=== PATIENT | female | born 1995 | race African-American/Black ===

== ENCOUNTER 2018-05-26 19:03 | Emergency (ER) | payer MEDICAID ==
--- NOTE | 2018-05-26 21:21 | ER Document Report ---
HPI - HPI Patient complains to provider of: Cough Time Seen by Provider: 05/26/18 20:38 Pain Level: 5 Context: Patient is a 22-year-old female presents to the emergency department complaining of generalized cough and congestion for the last 4 weeks. Patient denies any fevers. States when she gets into a coughing fit she feels as though she cannot breathe. Patient has no history of asthma or albuterol use in the past. Patient does admit to 2 episodes of posttussive vomiting today. Past medical history: None Medications: None Allergies: Red dye, Motrin - CONSTITUTIONAL Constitutional: REPORTS: Fever. DENIES: Chills - EENT EENT: REPORTS: Sore Throat, Ear Pain - both ears - NEURO Neurology: REPORTS: Headache, Weakness, Vision blurred, Dizzinesss / Vertigo - CARDIOVASCULAR Cardiovascular: REPORTS: Chest pain - wheezing - RESPIRATORY Respiratory: REPORTS: Trouble Breathing, Coughing - REPRODUCTIVE Reproductive: DENIES: : Past Medical History - General Information source: Patient - Social History Smoking Status: Former Smoker Chew tobacco use (# tins/day): No Frequency of alcohol use: None Drug Abuse: Marijuana Family History: Arthritis, CAD, CVA, DM, Hyperlipidemia, Hypertension, Malignancy. denies: Thyroid Disfunction Patient has suicidal ideation: No Patient has homicidal ideation: No Pulmonary Medical History: Reports: Hx Asthma Renal/ Medical History: Denies: Hx Peritoneal Dialysis Psychiatric Medical History: Reports: Hx Depression Past Surgical History: Reports: Hx Section - x 3 - Immunizations Immunizations up to date: Yes Hx Diphtheria, Pertussis, Tetanus Vaccination: Yes Vertical Provider Document - CONSTITUTIONAL Agree With Documented VS: Yes Notes: GENERAL: Alert, interacts well. No acute distress. HEAD: Normocephalic, atraumatic. No frontal or maxillary sinus tenderness noted EYES: Pupils equal, round, and reactive to light. Extraocular movements intact. ENT: Oral mucosa moist, tongue midline. Nares patent, swollen turbinates bilaterally, TM's intact, nonerythematous, nonbulging. Pharynx within normal limits, nonerythematous, no palatal petechiae or exudate noted NECK: Full range of motion. Supple. Trachea midline. LUNGS: Clear to auscultation bilaterally, no wheezes, rales, or rhonchi. No respiratory distress. HEART: Regular rate and rhythm. No murmur ABDOMEN: Soft, non-tender. Non-distended. Bowel sounds present in all 4 quadrants. EXTREMITIES: Moves all 4 extremities spontaneously. No edema, normal radial and dorsalis pedis pulses bilaterally. No cyanosis. BACK: no cervical, thoracic, lumbar midline tenderness. No saddle anesthesia, normal distal neurovascular exam. NEUROLOGICAL: Alert and oriented x3. Normal speech. cranial nerves II through XII grossly intact PSYCH: Normal affect, normal mood. SKIN: Warm, dry, normal turgor. No rashes or lesions noted. - INFECTION CONTROL TRAVEL OUTSIDE OF THE [place] IN LAST 30 DAYS: No Course - Re-evaluation Re-evalutation: 05/26/18 21:54 Patient's chest x-ray shows no signs of pneumonia, pneumothorax, rib fracture. Patient is in the emergency room with her to children with similar symptoms. Discussed symptomatic relief of symptoms at home. Patient stable for discharge. - Vital Signs Vital signs: Temp Pulse Resp BP Pulse Ox 98.7 F 113 H 20 104/64 98 05/26/18 19:23 05/26/18 19:23 05/26/18 19:23 05/26/18 19:23 05/26/18 19:23 Discharge - Discharge Clinical Impression: Upper respiratory infection Qualifiers: URI type: unspecified viral URI Qualified Code(s): J06.9 - Acute upper respiratory infection, unspecified Condition: Stable Disposition: HOME, SELF-CARE Instructions: Upper Respiratory Illness ([facility]) Additional Instructions: As we discussed you have been seen and treated in the emergency department for an upper respiratory infection. Unfortunately these are caused by viruses so they do not respond to antibiotics. Your chest x-ray revealed no signs of pne umonia. You should continue taking [id number] cold medications and prescription medications as prescribed. Please follow-up with your primary care provider in the next 24-48 hours. Please return to the emergency room for any other concerning signs and symptoms Prescriptions: Benzonatate [Tessalon Perles 100 mg Capsule] 100 mg PO Q8HP PRN #40 capsule PRN Reason: Mometasone Furoate [Nasonex] 1 spray NS Q12 #1 spray.pump
--- NOTE | 2018-05-26 21:39 | RADIOLOGY REPORT (SQ) ---
EXAM DESCRIPTION: XR CHEST 2 VIEWS COMPLETED DATE/TME: 05/26/2018 21:07 CLINICAL HISTORY: 22 years, Female, cough x 4 weeks COMPARISON: 01/08/2016 chest NUMBER OF VIEWS: 2 TECHNIQUE: Frontal and lateral views of the chest LIMITATIONS: None. FINDINGS: The heart size is normal. Lungs are clear. No pneumothorax IMPRESSION: Negative chest copyright 2010 [employer]- All Rights Reserved
[2018-05-26 22:35] VITALS: BP 101/61
== END 2018-05-26 22:35 | disposition home or self-care (01) ==
LOC: ER 19:03
DX: J06.9 Acute upper respiratory infection, unspecified (principal); Z87.891 Personal history of nicotine dependence
CPT/HCPCS: 71046; 99284

== ENCOUNTER 2018-10-07 12:12 | Inpatient (IN) | payer MEDICAID ==
[2018-10-08 10:34] LABS: APPEARANCE,URINE CLEAR; BILIRUBIN,URINE NEGATIVE (NEGATIVE); COLOR,URINE STRAW; GLUCOSE, URINE NEGATIVE (NEGATIVE); KETONES,URINE NEGATIVE (NEGATIVE); LEUKOCYTE ESTERASE,URINE NEGATIVE (NEGATIVE); NITRITE,URINE NEGATIVE (NEGATIVE); PROTEIN,URINE NEGATIVE (NEGATIVE); URINE SPECIFIC GRAVITY 1.005; UROBILINOGEN,URINE NEGATIVE mg/dL (<2.0)
[2018-10-08 10:37] LABS: ABSOLUTE EOSINOPHILS # (AUTO) 0.1 10^3/uL (0.0-0.6); ABSOLUTE LYMPHOCYTES (AUTO) 1.2 10^3/uL (0.5-4.7); ABSOLUTE MONOCYTES (AUTO) 0.9 10^3/uL (0.1-1.4); BASOPHILS % (AUTO) 0.2 % (0-2); EOSINOPHILS % (AUTO) 2.1 % (0-6); HEMATOCRIT 34.8 % (36.0-47.0); HEMOGLOBIN 11.3 g/dL (12.0-15.5); LYMPHOCYTES % (AUTO) 19.3 % (13-45); MEAN CORPUSCULAR HEMOGLOBIN 24.6 pg (27.0-33.4); MEAN CORPUSCULAR HGB CONC 32.4 g/dL (32.0-36.0); MEAN CORPUSCULAR VOLUME 76 fl (80-97); MONOCYTES % (AUTO) 14.6 % (3-13); PLATELET COUNT 224 10^3/uL (150-450); RED BLOOD COUNT 4.57 10^6/uL (3.72-5.28); RED CELL DISTRIBUTION WIDTH 15.4 % (11.5-14.0); SEGMENTED NEUTROPHILS % (AUTO) 63.8 % (42-78); TOTAL CELLS COUNTED % (AUTO) 100 %; WHITE BLOOD COUNT 6.2 10^3/uL (4.0-10.5)
[2018-10-08 10:49] LABS: URINE AMPHETAMINES SCREEN NEGATIVE; URINE COCAINE SCREEN NEGATIVE; URINE MARIJUANA (THC) SCREEN NEGATIVE; URINE METHADONE SCREEN NEGATIVE; URINE PHENCYCLIDINE SCREEN NEGATIVE
[2018-10-08 10:50] LABS: URINE BARBITURATES SCREEN NEGATIVE
[2018-10-08 10:51] LABS: URINE BENZODIAZEPINES SCREEN NEGATIVE
[2018-10-09] MEDS ORDERED: LACTATED RINGERS 1000 ML IV PRN (05:00)
[2018-10-09] MEDS ORDERED: LIDOCAINE 0.5% INJ-PF (5 MG/ML) 50 ML SDV SUBCUT PRN (05:00)
[2018-10-09] MEDS ORDERED: CEFAZOLIN 2 GM/D5W RTU 2 GM/50 ML RTUPB IV PRN (08:08)
[2018-10-09] MEDS ORDERED: EPHEDRINE SULFATE INJ 50 MG/1 ML AMPULE ONE (08:22)
[2018-10-09] MEDS ORDERED: OXYTOCIN 10 UNIT/ML VIAL ONE (08:22)
[2018-10-09] MEDS ORDERED: FENTANYL CITRATE INJ/PF 100 MCG/2 ML AMPUL ONE (08:22)
[2018-10-09] MEDS ORDERED: OXYTOCIN/NORMAL SALINE 20 UNIT/1,000 ML RTUINJ ONE (08:23)
[2018-10-09] MEDS ORDERED: MIDAZOLAM 2 MG/2 ML INJ ONE (08:23)
[2018-10-09] MEDS ORDERED: ONDANSETRON HCL INJ/PF 4 MG/2 ML SDV ONE (08:23)
[2018-10-09] MEDS ORDERED: ONDANSETRON HCL INJ/PF 4 MG/2 ML SDV IV PRN (08:36)
[2018-10-09] MEDS ORDERED: MEPERIDINE HCL/PF INJ 25 MG/1 ML DISP.SYRIN IV PRN (08:36)
[2018-10-09] MEDS ORDERED: DIPHENHYDRAMINE HCL 50 MG/ML VIAL IV PRN (08:36)
[2018-10-09] MEDS ORDERED: PROMETHAZINE HCL INJ 25 MG/1 ML VIAL IV PRN ×2 (08:36→10:03)
[2018-10-09] MEDS ORDERED: MORPHINE SULFATE 10 MG/ML INJ IV PRN (08:36)
[2018-10-09] MEDS ORDERED: FENTANYL CITRATE INJ/PF 100 MCG/2 ML AMPUL IV PRN ×3 (08:36)
[2018-10-09] MEDS ORDERED: NALBUPHINE HCL INJ 10 MG/1 ML AMPULE IM ONE (08:37)
[2018-10-09] MEDS ORDERED: SIMETHICONE 80 MG TAB.CHEW PO PRN (10:03)
[2018-10-09] MEDS ORDERED: OXYCODONE-ACETAMINOPHEN 5-325 MG TABLET PO PRN (10:03)
[2018-10-09] MEDS ORDERED: OXYTOCIN/NORMAL SALINE 20 UNIT/1,000 ML RTUINJ IV PRN (10:03)
[2018-10-09] MEDS ORDERED: HYDROMORPHONE HCL INJ/PF 2 MG/ML AMPULE IV PRN (10:03)
[2018-10-09] MEDS ORDERED: RINGERS SOLUTION,LACTATED 1,000 ML IV PRN (10:03)
[2018-10-09] MEDS ORDERED: MEASLES,MUMPS&RUBELLA VACC/PF 0.5 ML VIAL SUBCUT PRN (10:03)
[2018-10-09] MEDS ORDERED: DIPH/PERTUSS(ACELL)/TETANUS VAC/PF 0.5 ML SYR (>=10YO) IM PRN (10:03)
[2018-10-09] MEDS ORDERED: ACETAMINOPHEN 1,000 MG/100 ML RTUPB IV PRN (10:03)
[2018-10-09] MEDS ORDERED: ACETAMINOPHEN 325 MG TABLET PO PRN (10:03)
--- NOTE | 2018-10-09 10:06 | PDOC DELIVERY SUMMARY ---
Delivery Summary - Maternal Hx : V Hx # Term Pregnancies: 4 Hx Total # of Abortions (Sponateous & Elective): 1 KEVIN: 10/12/18 - Delivery Presentation: Vertex Heart Rate Monitoring: Done Pre-Operatively Support Person Present: Yes Location: OR : Scheduled, Repeat Placenta: Within Normal Limits Delivery of Placenta Date: 10/09/18 Delivery of Placenta Time: 09:27 - Medications Type of Anesthesia:: Spinal - Assess and Care Baby 1 Male Delivery of Infant Date: 10/09/18 Delivery of Time: 09:26 at 1 minute: 7 at 5 minutes: 7 Infant Skin to Skin: No To Nursery At: 09:32 Mode of Transport: Bassinet Infant Delivery Weight: 32.2 Infant Delivery Length: 19.6 in - Delivery Personnel General Engineer: SHAYLEE BOLTON RN: RADHA RODRIGUEZ RN: NATHALY LIAO MD: JOEY MANN
--- NOTE | 2018-10-09 10:09 | Operative Report ---
Operative Report DATE OF SURGERY: 10/09/18 PREOPERATIVE DIAGNOSIS: Patient desires repeat to prevent risk from u terine rupture POSTOPERATIVE DIAGNOSIS: Same with the addition of a very thin lower uterine segment OPERATION: Repeat via low transverse uterine incision SURGEON: JOEY MANN ANESTHESIA: Spinal TISSUE REMOVED OR ALTERED: Placenta COMPLICATIONS: None ESTIMATED BLOOD LOSS: 250 cc INTRAOPERATIVE FINDINGS: Viable male. Normal uterus tubes and ovaries. Very thin lower uterine segment. PROCEDURE: Patient was taken to the OR and placed in supine position after her spinal anesthesia. She is prepared and draped in sterile fashion. Hooper was placed for drainage of the bladder. Low transverse incision was made and carried down the level of the fascia. The fascial incision was made with knife and extended bilaterally with curved Easley scissors. The fascia was off the rectus muscles using sharp and blunt dissection. The rectus muscles are in the midline. The peritoneum was entered without incident. Bladder blade was placed in uterine segment was identified. Bladder blade was placed low transverse uterine incision was made with the knife and extended with fingertips. The baby was delivered with some fundal pressure. Mouth and nose were suctioned free. The cord is doubly clamped and cut. Baby is passed off to the sheetmetal trades worker in attendance. The placenta was manually extracted with trailing membranes. The uterus was externalized wrapped in a moist lap sponge. Uterine contents wiped free. Uterus was closed with a running locking layer of 0 chromic suture using the second layer to imbricate the first completing a double layer closure of the uterus. The serosa was closed with a running 2-0 chromic stitch. The pelvis was irrigated and suctioned free of fluid the uterus was replaced in the abdomen. The abdominal wall peritoneum was closed with running 2-0 chromic stitch. Fascia was closed with a running 0 Vicryl in 2 segments. Alexa's layer was brought together with 0 plain gut stitch and the skin was closed with running subcuticular 4-0 undyed Vicryl stitch. The wound was dressed mother and baby did well.
[2018-10-09] MEDS ORDERED: ACETAMINOPHEN 1,000 MG/100 ML RTUPB IV ONE (10:24)
[2018-10-09] MEDS ORDERED: MORPHINE SULFATE 10 MG/ML INJ ONE (11:16)
[2018-10-09] MEDS: OXYCODONE-ACETAMINOPHEN 5-325 MG TABLET PO PRN ×2 (14:30→20:54)
[2018-10-09] MEDS: DOCUSATE SODIUM 100 MG CAPSULE PO SCH (17:14)
[2018-10-10] MEDS: OXYCODONE-ACETAMINOPHEN 5-325 MG TABLET PO PRN ×4 (02:58→20:26)
[2018-10-10 07:27] LABS: HEMATOCRIT 33.5 % (36.0-47.0); HEMOGLOBIN 10.8 g/dL (12.0-15.5); MEAN CORPUSCULAR HEMOGLOBIN 24.6 pg (27.0-33.4); MEAN CORPUSCULAR HGB CONC 32.3 g/dL (32.0-36.0); MEAN CORPUSCULAR VOLUME 76 fl (80-97); PLATELET COUNT 226 10^3/uL (150-450); RED BLOOD COUNT 4.39 10^6/uL (3.72-5.28); RED CELL DISTRIBUTION WIDTH 15.6 % (11.5-14.0)
[2018-10-10] MEDS: PRENATAL VITAMIN W DHA CAPSULE PO SCH (09:42)
[2018-10-10] MEDS: DOCUSATE SODIUM 100 MG CAPSULE PO SCH ×2 (09:42→17:32)
--- NOTE | 2018-10-10 10:29 | PDOC PROGRESS REPORT ---
Subjective-OB Progress Note for:: 10/10/18 Subjective: Pt doing well, no concerns. She reports light bleeding, regular diet and voiding without difficulty. Ambulatory. Physical Exam (OB) Vital Signs: Temp Pulse Resp BP Pulse Ox 98.5 F 80 20 117/59 L 100 10/10/18 08:00 10/10/18 08:00 10/10/18 08:00 10/10/18 08:00 10/10/18 08:00 Intake & Output 10/09/18 10/10/18 10/11/18 06:59 06:59 06:59 Intake Total 2000 Output Total 3700 Balance -1700 Weight 99.79 kg - PIH/Pre-Eclampsia Clonus: Negative Headache: Absent Epigastric Pain: No Visual Changes: No - Dressing Removed: No - Opsite; scant sanguinous drainage noted - Lochia Lochia Amount: Scant < 10 ml Lochia Color: Rubra/Red - Abdomen Description: Tender, Soft Hernia Present: No Fundal Description: Firm, Midline Fundal Height: u/u - u/2 Objective-Diagnostic Laboratory: 10/10/18 07:14 10/10/18 07:14 WBC 8.0 RBC 4.39 Hgb 10.8 L Hct 33.5 L MCV 76 L MCH 24.6 L MCHC 32.3 RDW 15.6 H Plt Count 226 Assessment and Plan(PN) - Assessment and Plan (1) Status post repeat low transverse section Is this a current diagnosis for this admission?: Yes - Time Spent with Patient Time with patient: Less than 15 minutes Medications reviewed and adjusted accordingly: Yes - Disposition Anticipated Discharge: Home Within: within 24 hours
[2018-10-11] MEDS: OXYCODONE-ACETAMINOPHEN 5-325 MG TABLET PO PRN (06:22)
--- NOTE | 2018-10-11 07:48 | PDOC DISCHARGE SUMMARY ---
Final Diagnosis Discharge Date: 10/11/18 - Final Diagnosis (1) Status post repeat low transverse section Is this a current diagnosis for this admission?: Yes Discharge Data - Discharge Medication Home Medications: Vitamin [-U Multiple Vitamin Capsule] 1 cap PO DAILY #60 capsule 02/12/15 Albuterol Sulfate [Proair HFA Inhalation Aerosol 8.5 gm MDI] 2 puff IH Q4H PRN #1 mdi 01/08/16 Reason(s) for Admission: Ceasarean Section-Repeat Procedures: None Intrapartum Procedure(s): : Low Cervical, Transverse - Diagnosis Test Laboratory: Temp Pulse Resp BP Pulse Ox 98.2 F 82 18 117/67 93 10/11/18 03:46 10/11/18 03:46 10/11/18 03:46 10/11/18 03:46 10/11/18 03:46 10/08/18 10/08/18 10/10/18 09:30 09:34 07:14 RBC 4.57 4.39 Hgb 11.3 L 10.8 L Hct 34.8 L 33.5 L Urine Opiates Screen NEGATIVE - Discharge information/Instructions Discharge Activity: Balance Activity w/Rest, No Lifting Over 10 Pounds, No Lifting/Push/Pulling, Pelvic Rest, No tub bath Discharge Diet: Regular Disposition: HOME, SELF-CARE Follow up with: [facility] in: 5, Days
[2018-10-11] MEDS: PRENATAL VITAMIN W DHA CAPSULE PO SCH (09:36)
[2018-10-11] MEDS: DOCUSATE SODIUM 100 MG CAPSULE PO SCH (09:36)
[2018-10-11 10:44] VITALS: BP 105/64
== END 2018-10-11 12:45 | disposition home or self-care (01) | DRG 788 ==
LOC: 2S 10-09 06:33
PROVIDERS: ADMIT Obstetrics & Gynecology; ATTEND Obstetrics & Gynecology
PROC: 4A1HXCZ Monitoring of Products of Conception, Cardiac Rate, External Approach (ICD-10-PCS; 2018-10-09)
PROC: 10D00Z1 Extraction of Products of Conception, Low, Open Approach (ICD-10-PCS; principal; 2018-10-09 08:45)
PROC: 3E0234Z Introduction of Serum, Toxoid and Vaccine into Muscle, Percutaneous Approach (ICD-10-PCS; 2018-10-11)
DX: O34.211 Maternal care for low transverse scar from previous cesarean delivery (principal); Z23 Encounter for immunization; Z3A.39 39 weeks gestation of pregnancy; Z37.0 Single live birth; Z87.891 Personal history of nicotine dependence; Z88.6 Allergy status to analgesic agent; Z91.018 Allergy to other foods; Z91.048 Other nonmedicinal substance allergy status
CPT/HCPCS: 1961; 36415; 59025; 80307; 81001; 85025; 85027; 86850; 86900; 86901; 90715; 94799; J0131; J1170; J2250; J2270; J2300; J2405; J2590; J3010; J3490; J7120

== ENCOUNTER 2018-11-26 21:28 | Emergency (ER) | payer MEDICAID ==
[2018-11-26 22:15] VITALS: BP 112/65
--- NOTE | 2018-11-26 22:45 | ER Document Report ---
ED Medical Screen (RME) - General Chief Complaint: Chest Pain Stated Complaint: CHEST PAIN,THROAT PAIN,DIZZINESS Time Seen by Provider: 11/26/18 22:34 TRAVEL OUTSIDE OF THE [place] IN LAST 30 DAYS: No - HPI Notes: 11/26/18 22:42 22 YEAR OLD FEMALE TO THE ED WITH C/O CHEST PAIN THAT HAS BEEN OFF AND ON FOR TWO WEEKS AND BECAME CONSTANT TODAY. DENIES ASSOCIATED COUGH, DOES ADMIT THAT IT SEEMS TO GET WORSE WITH BIG DEEP BREATH. STATES THAT WHEN SHE AMBULATES, HER CHEST PAIN GETS WORSE. ADMITS TO ASSOCIATED SOB. DENIES DIAPHORESIS. DENIES SMOKING. SHE DENIES HX OF BLOOD CLOTS. DENIES LEG SWELLING. DENIES RECENT TRAVEL. SHE HAD A NEW BABY TWO MONTHS AGO. SHE ALSO STATES THAT SHE IS ON THE DEPOT SHOT. DENIES ANY HX OF DM, HTN, HLD. SHE HAS NEVER HAD A STROKE. DENIES DRUG USE. SHE ADMITS TO FAMILY HISTORY OF AMI -- FATHER AT AGE 51. - Related Data Allergies/Adverse Reactions: Coconut * [Coconut] Allergy (Severe, Verified 10/08/18 10:18) Tongue numbness red dye [Red Dye] Allergy (Severe, Verified 10/08/18 10:18) Gastritis ibuprofen Adverse Reaction (Verified 10/08/18 10:06) Hives Past Medical History - Past Medical History Cardiac Medical History: Denies: Hx Pulmonary Embolism Pulmonary Medical History: Reports: Hx Asthma Denies: Hx Sleep Apnea, Hx Tuberculosis Renal/ Medical History: Denies: Hx Kidney Stones, Hx Ovarian Cysts, Hx Peritoneal Dialysis, Hx Pelvic Inflammatory Disease Malignancy Medical History: Denies: Hx Breast Cancer, Hx Cervical Cancer, Hx Ovarian Cancer GI Medical History: Denies: Hx Gastroesophageal Reflux Disease, Hx Hiatal Hernia, Hx Ulcer Psychiatric Medical History: Reports: Hx Bipolar Disorder - Pt suspects, no formal diagnosis , Hx Depression, Hx Post Traumatic Stress Disorder - Pt suspects, no formal diagnosis Denies: Hx Schizophrenia Infectious Medical History: Denies: Hx HIV Past Surgical History: Reports: Hx Section - x 3 - Immunizations Immunizations up to date: Yes Hx Diphtheria, Pertussis, Tetanus Vaccination: Yes Physical Exam - Vital signs Vitals: Temp Pulse Resp BP Pulse Ox 98.3 F 68 15 112/65 99 11/26/18 22:14 11/26/18 22:14 11/26/18 22:14 11/26/18 22:14 11/26/18 22:14 Interpretation: Normal - General General appearance: Appears well, Alert - Cardiovascular Rhythm: Regular Heart sounds: Normal auscultation Murmur: No Notes: NO LEG EDEMA - Neurological Neuro grossly intact: Yes Cognition: Normal Orientation: AAOx4 [place] Coma Scale Eye Opening: Spontaneous [place] Coma Scale Verbal: Oriented [place] Coma Scale Motor: Obeys Commands [place] Coma Scale Total: 15 Speech: Normal Motor strength normal: LUE, RUE, LLE, RLE Sensory: Normal - Psychological Associated symptoms: Normal affect, Normal mood - Skin Skin Temperature: Warm Skin Moisture: Dry Skin Color: Normal Course - Vital Signs Vital signs: Temp Pulse Resp BP Pulse Ox 98.3 F 68 15 112/65 99 11/26/18 22:14 11/26/18 22:14 11/26/18 22:14 11/26/18 22:14 11/26/18 22:14
--- NOTE | 2018-11-26 23:28 | RADIOLOGY REPORT (SQ) ---
CLINICAL HISTORY: CHEST PAIN COMPARISON: None. TECHNIQUE: XR CHEST 2 VIEWS 11/26/2018 10:35 PM CDT FINDINGS: Cardiac silhouette is normal in size. Lungs are clear without consolidation, atelectasis, mass or edema. There is no pleural effusion. There is no pneumothorax. There are no acute osseous findings. IMPRESSION: Clear lungs.
== END 2018-11-27 01:22 | disposition left against medical advice (07) ==
LOC: ER 21:28
DX: R07.9 Chest pain, unspecified (principal); J45.909 Unspecified asthma, uncomplicated; R06.02 Shortness of breath; Z79.3 Long term (current) use of hormonal contraceptives; Z91.018 Allergy to other foods; Z91.048 Other nonmedicinal substance allergy status; Z82.49 Family history of ischemic heart disease and other diseases of the circulatory system; Z53.20 Procedure and treatment not carried out because of patient's decision for unspecified reasons
CPT/HCPCS: 71046; 99281

== ENCOUNTER 2020-03-07 21:20 | Emergency (ER) | payer MEDICAID ==
--- NOTE | 2020-03-07 22:50 | ER Document Report ---
ED Medical Screen (RME) - General Chief Complaint: Chest Pain Stated Complaint: CHEST PAIN,DIZZINESS,FACIAL NUMBNESS Time Seen by Provider: 03/07/20 22:41 TRAVEL OUTSIDE OF THE [place] IN LAST 30 DAYS: No - HPI Notes: 03/07/20 22:48 24-year-old female to the emergency department with complaints of midsternal chest pain that radiates through to her back with associated shortness of breath and lightheadedness that began today. She has had 2 separate episodes. She states that she is going to pass out. She states when she feels this way she also gets oral numbness and tingling. She states she has little bit of pain into both her hands but she has been attributing that to her carpal tunnel. Denies any nausea or vomiting. She denies any abdominal pain. Denies any diaphoresis. There is family history for heart attacks on her paternal side. She does not have high blood pressure, diabetes, hyperlipidemia. She also states that she is on day 3 of her period. She states that she has been having some clots and now is acting a little bit more like a normal flow. She denies any swelling, recent travel, use of control. Brief medical screening exam does illustrate a little bit of paleness of the skin. No pitting edema. Nontender to palpation over the abdomen. Mild tenderness to palpation to the anterior chest wall. No crepitus or step-off. I performed a brief medical screening exam on the patient determined that the patient needs further evaluation and management by main side provider. I have placed initial orders to help expedite care. - Related Data Allergies/Adverse Reactions: Coconut * [Coconut] Allergy (Severe, Verified 10/08/18 10:18) Tongue numbness red dye [Red Dye] Allergy (Severe, Verified 10/08/18 10:18) Gastritis ibuprofen Adverse Reaction (Verified 10/08/18 10:06) Hives Past Medical History - Past Medical History Cardiac Medical History: Denies: Hx Pulmonary Embolism Pulmonary Medical History: Reports: Hx Asthma Denies: Hx Sleep Apnea, Hx Tuberculosis Renal/ Medical History: Denies: Hx Kidney Stones, Hx Ovarian Cysts, Hx Peritoneal Dialysis, Hx Pelvic Inflammatory Disease Malignancy Medical History: Denies: Hx Breast Cancer, Hx Cervical Cancer, Hx Ovarian Cancer GI Medical History: Denies: Hx Gastroesophageal Reflux Disease, Hx Hiatal Hernia, Hx Ulcer Psychiatric Medical History: Reports: Hx Bipolar Disorder - Pt suspects, no formal diagnosis , Hx Depression, Hx Post Traumatic Stress Disorder - Pt suspects, no formal diagnosis Denies: Hx Schizophrenia Infectious Medical History: Denies: Hx HIV Past Surgical History: Reports: Hx Section - x 3 - Immunizations Immunizations up to date: Yes Hx Diphtheria, Pertussis, Tetanus Vaccination: Yes Physical Exam - Vital signs Vitals: Temp Pulse Resp BP Pulse Ox 98.3 F 73 20 125/70 99 03/07/20 21:28 03/07/20 21:28 03/07/20 21:28 03/07/20 21:28 03/07/20 21:28 Course - Vital Signs Vital signs: Temp Pulse Resp BP Pulse Ox 98.3 F 73 20 125/70 99 03/07/20 21:28 03/07/20 21:28 03/07/20 21:28 03/07/20 21:28 03/07/20 21:28
--- NOTE | 2020-03-07 23:20 | RADIOLOGY REPORT (SQ) ---
EXAM DESCRIPTION: XR CHEST 2 VIEWS COMPLETED DATE/TME: 03/07/2020 22:47 CLINICAL INDICATION: 24-year-old female with chest pain and dizziness. TECHNIQUE: Two-view, PA and lateral projections of the chest were obtained. COMPARISON: 01/08/2016. FINDINGS: Unremarkable cardiac and mediastinal silhouette. Heart size is normal. Lungs are clear without focal opacity, pneumothorax or pleural effusions. The visualized bones are within normal limits. IMPRESSION: No acute cardiopulmonary abnormalities.
[2020-03-07 23:48] LABS: ABSOLUTE EOSINOPHILS # (AUTO) 0.4 10^3/uL (0.0-0.6); ABSOLUTE LYMPHOCYTES (AUTO) 2.7 10^3/uL (0.5-4.7); ABSOLUTE MONOCYTES (AUTO) 0.5 10^3/uL (0.1-1.4); ABSOLUTE NEUT (AUTO) 3.3 10^3/uL (1.7-8.2); BASOPHILS % (AUTO) 0.5 % (0-2); EOSINOPHILS % (AUTO) 5.6 % (0-6); HEMATOCRIT 35.8 % (36.0-47.0); HEMOGLOBIN 11.8 g/dL (12.0-15.5); LYMPHOCYTES % (AUTO) 39.2 % (13-45); MEAN CORPUSCULAR HEMOGLOBIN 26.3 pg (27.0-33.4); MEAN CORPUSCULAR HGB CONC 33.1 g/dL (32.0-36.0); MEAN CORPUSCULAR VOLUME 80 fl (80-97); MONOCYTES % (AUTO) 6.8 % (3-13); PLATELET COUNT 324 10^3/uL (150-450); RED BLOOD COUNT 4.49 10^6/uL (3.72-5.28); RED CELL DISTRIBUTION WIDTH 13.9 % (11.5-14.0); SEGMENTED NEUTROPHILS % (AUTO) 47.9 % (42-78); TOTAL CELLS COUNTED % (AUTO) 100 %; WHITE BLOOD COUNT 6.9 10^3/uL (4.0-10.5)
[2020-03-07 23:49] LABS: INTERNATIONAL RATION (INR) 1.04; PROTHROMBIN TIME 13.8 SEC (11.4-15.4)
[2020-03-07 23:50] LABS: PARTIAL THROMBOPLASTIN TIME 30.9 SEC (23.5-35.8)
--- NOTE | 2020-03-08 00:29 | ER Document Report ---
ED Cardiac - General Chief Complaint: Chest Pain Stated Complaint: CHEST PAIN,DIZZINESS,FACIAL NUMBNESS Time Seen by Provider: 03/07/20 22:41 Notes: CHIEF COMPLAINT: Multiple complaints HPI: 24-year-old morbidly obese female presenting with multiple complaints. Chest pain shortness of breath anxiety. Patient states "I think I am having an anxiety attack". Patient states she has had attacks like this intermittently over the last several years has not had one in quite some time. States that with her anxiety attacks she will get chest pain shortness of breath that will last for up to 1 to 2 hours and occasionally some numbness and tingling in the fingertips. This occurred tonight and she states it is more severe than her normal panic attacks. She took no medications at home. She is on no medications for anxiety or panic attacks but does report increased stress at home with school and with work. Patient states that thinking about certain events causes the symptoms to worsen. Denies abdominal pain nausea vomiting. ROS: See HPI - all other systems were reviewed and are otherwise negative Constitutional: no fever Eyes: no drainage, no blurred vision ENT: no runny nose, no sore throat Cardiovascular: + chest pain Resp: + SOB, no cough GI: no vomiting, no diarrhea, no abdominal pain : no dysuria Integumentary: no rash Allergy: no hives Musculoskeletal: no extremity pain or swelling Neurological: + numbness/tingling, no weakness MEDICATIONS: I agree with the patient medications as charted by the RN. ALLERGIES: I agree with the allergies as charted by the RN. PAST MEDICAL HISTORY/PAST SURGICAL HISTORY: Reviewed and agree as charted by RN. SOCIAL HISTORY: Reviewed and agree as charted by RN. FAMILY HISTORY: No significant familial comorbid conditions directly related to patient complaint EXAM: Reviewed vital signs as charted by RN. CONSTITUTIONAL: Alert and oriented and responds appropriately to questions. Well-appearing; well-nourished HEAD: Normocephalic; atraumatic EYES: PERRL; Conjunctivae clear, sclerae non-icteric ENT: normal nose; no rhinorrhea; moist mucous membranes; pharynx without lesions noted, no uvula edema or deviation, no tonsillar hypertrophy, phonation normal NECK: Supple without meningismus; non-tender; no cervical lymphadenopathy, no masses CARD: RRR; no murmurs, no clicks, no rubs, no gallops; symmetric distal pulses RESP: Normal chest excursion without splinting or tachypnea; breath sounds clear and equal bilaterally; no wheezes, no rhonchi, no rales, pulse oximetry ABD/GI: Normal bowel sounds; non-distended; soft, non-tender, no rebound, no guarding; no palpable organomegaly or masses. BACK: The back appears normal and is non-tender to palpation, there is no CVA tenderness EXT: Normal ROM in all joints; non-tender to palpation; no cyanosis, no effusions, no edema SKIN: Normal color for age and race; warm; dry; good turgor; no acute lesions noted NEURO: Moves all extremities equally; Motor and sensory function intact PSYCH: The patient's mood and manner are appropriate. Grooming and personal hygiene are appropriate. MDM: EKG normal sinus rhythm with a ventricular rate of 71 NM 172 QT 380 QTC 413. Normal EKG no other ectopy is noted. Interpreted by emergency department physician. Patient is in no acute distress in the room eating De[employer]us's. Patient symptoms seem to stem from increased stress recently this is likely an anxiety or panic attack lower suspicion for ACS. Chest x-ray EKG are normal. Awaiting screening chemistries but if normal given her lower risk factors for ACS anticipate discharge home with Vistaril with referral to psychiatric service TRAVEL OUTSIDE OF THE [place] IN LAST 30 DAYS: No - Related Data Allergies/Adverse Reactions: Coconut * [Coconut] Allergy (Severe, Verified 10/08/18 10:18) Tongue numbness red dye [Red Dye] Allergy (Severe, Verified 10/08/18 10:18) Gastritis ibuprofen Adverse Reaction (Verified 10/08/18 10:06) Hives Past Medical History - Social History Smoking Status: Never Smoker Frequency of alcohol use: Rare Drug Abuse: None Family History: Arthritis, CAD, CVA, DM, Hyperlipidemia, Hypertension, Malignancy. denies: Thyroid Disfunction - Past Medical History Cardiac Medical History: Denies: Hx Pulmonary Embolism Pulmonary Medical History: Denies: Hx Asthma, Hx Sleep Apnea, Hx Tuberculosis Renal/ Medical History: Denies: Hx Kidney Stones, Hx Ovarian Cysts, Hx Peritoneal Dialysis, Hx Pelvic Inflammatory Disease Malignancy Medical History: Denies: Hx Breast Cancer, Hx Cervical Cancer, Hx Ovarian Cancer GI Medical History: Denies: Hx Gastroesophageal Reflux Disease, Hx Hiatal Hernia, Hx Ulcer Psychiatric Medical History: Reports: Hx Bipolar Disorder - Pt suspects, no formal diagnosis , Hx Depression, Hx Post Traumatic Stress Disorder - Pt suspects, no formal diagnosis Denies: Hx Schizophrenia Infectious Medical History: Denies: Hx HIV Past Surgical History: Reports: Hx Section - x4 - Immunizations Immunizations up to date: Yes Hx Diphtheria, Pertussis, Tetanus Vaccination: Yes Physical Exam - Vital signs Vitals: Temp Pulse Resp BP Pulse Ox 98.3 F 73 20 125/70 99 03/07/20 21:28 03/07/20 21:28 03/07/20 21:28 03/07/20 21:28 03/07/20 21:28 Course - Re-evaluation Re-evalutation: 03/08/20 01:03 Patient lab work does not show acute emergent abnormalities, will discharge home on Vistaril to follow-up with psychiatric services - Vital Signs Vital signs: Temp Pulse Resp BP Pulse Ox 98.7 F 76 17 107/63 99 03/08/20 00:18 03/08/20 00:18 03/08/20 00:18 03/08/20 00:18 03/08/20 00:18 - Laboratory Result Diagrams: 03/07/20 23:20 03/07/20 23:20 Laboratory results interpreted by me: 03/07/20 23:20 Hgb 11.8 L Hct 35.8 L MCH 26.3 L Discharge - Discharge Clinical Impression: Panic attack Chest pain Qualifiers: Chest pain type: unspecified Qualified Code(s): R07.9 - Chest pain, unspecified Condition: Stable Disposition: HOME, SELF-CARE Additional Instructions: Your lab work and imaging studies today did not show acute findings. Take the Vistaril at onset of panic attacks, do not drive if taking this medication. Follow-up with psychiatric services for further evaluation and treatment call for appointment Prescriptions: Hydroxyzine Pamoate [Vistaril 50 mg Capsule] 50 mg PO Q8HP PRN #30 capsule PRN Reason: Anxiety Referrals: ROSE MATTHEWS [[employer]] - Follow up as needed
[2020-03-08 00:45] LABS: ALBUMIN 4.3 g/dL (3.5-5.0); ALKALINE PHOSPHATASE 65 U/L (38-126); ANION GAP 10 (5-19); ASPARTATE AMINO TRANSFERASE 19 U/L (14-36); BILIRUBIN,DIRECT 0.2 mg/dL (0.0-0.4); BILIRUBIN,TOTAL 0.5 mg/dL (0.2-1.3); BLOOD UREA NITROGEN 10 mg/dL (7-20); CALCIUM 9.2 mg/dL (8.4-10.2); CARBON DIOXIDE 24 mmol/L (22-30); CHLORIDE 104 mmol/L (98-107); GLUCOSE 100 mg/dL (75-110); POTASSIUM 3.8 mmol/L (3.6-5.0); TOTAL PROTEIN 7.4 g/dL (6.3-8.2)
[2020-03-08 01:43] VITALS: BP 124/67
--- NOTE | 2020-03-08 16:20 | EKG REPORT ---
SEVERITY:- NORMAL ECG - SINUS RHYTHM : Confirmed by: Jose Luis Curtis MD 08-Mar-2020 16:19:12
== END 2020-03-08 01:50 | disposition home or self-care (01) ==
LOC: ER 21:20
DX: F41.0 Panic disorder [episodic paroxysmal anxiety] (principal); R07.9 Chest pain, unspecified; R42 Dizziness and giddiness; R20.0 Anesthesia of skin
CPT/HCPCS: 36415; 71046; 80053; 83735; 84484; 85025; 85610; 85730; 86850; 86900; 86901; 93005; 93010; 99285

== ENCOUNTER 2020-05-21 19:49 | Emergency (ER) | payer MEDICAID, OTHER ==
[2020-05-21 20:57] VITALS: BP 134/74
--- NOTE | 2020-05-21 22:59 | RADIOLOGY REPORT (SQ) ---
EXAM DESCRIPTION: ANKLE LEFT COMPLETE 05/21/2020 9:22 PM [employer] CLINICAL HISTORY: 24 years Female, fall; pain; ; COMPARISON: None. FINDINGS: 3 views were obtained. Visualized osseous structures are normal in appearance. Joint spaces are well-maintained. No acute fracture or dislocation is evident. However, there is an os trigonum as well as an os supranaviculare. IMPRESSION: No acute osseous anomaly.
--- NOTE | 2020-05-21 23:01 | RADIOLOGY REPORT (SQ) ---
EXAM DESCRIPTION: XR left TIBIA FIBULA 2 VIEWS COMPLETED DATE/TME: 05/21/2020 22:37 CLINICAL HISTORY: 24 years, Female, fall; pain COMPARISON: None. NUMBER OF VIEWS: TECHNIQUE: LIMITATIONS: None. FINDINGS: There is anterior soft tissue swelling. No fracture or dislocation. Mineralization of bone appears normal. IMPRESSION: Anterior soft tissue swelling. No fracture or dislocation. copyright 2010 [id number]- All Rights Reserved
--- NOTE | 2020-05-21 23:58 | ER Document Report ---
HPI - HPI Time Seen by Provider: 05/21/20 21:17 Context: Patient is a 24-year-old female presents emergency department with a chief complaint of left ankle pain. Patient states that she hurt her ankle prior to going to work. States that her foot rotated medially. She went to work and started walking on her ankle and ended up having worsening pain. - ROS Systems Reviewed and Negative: Yes All other systems reviewed and negative - CONSTITUTIONAL Constitutional: DENIES: Fever, Chills - RESPIRATORY Respiratory: DENIES: Trouble Breathing, Coughing - REPRODUCTIVE Reproductive: DENIES: : - MUSCULOSKELETAL Musculoskeletal: REPORTS: Extremity pain - Left ankle, Swelling - Left ankle - DERM Skin Color: Ecchymosis - Left ankle Skin Problems: Bruise - Left ankle Past Medical History - General Information source: Patient - Social History Smoking Status: Unknown if Ever Smoked Family History: Arthritis, CAD, CVA, DM, Hyperlipidemia, Hypertension, Malignancy. denies: Thyroid Disfunction - Past Medical History Cardiac Medical History: Denies: Hx Pulmonary Embolism Pulmonary Medical History: Denies: Hx Asthma, Hx Sleep Apnea, Hx Tuberculosis Renal/ Medical History: Denies: Hx Kidney Stones, Hx Ovarian Cysts, Hx Peritoneal Dialysis, Hx Pelvic Inflammatory Disease Malignancy Medical History: Denies: Hx Breast Cancer, Hx Cervical Cancer, Hx Ovarian Cancer GI Medical History: Denies: Hx Gastroesophageal Reflux Disease, Hx Hiatal Hernia, Hx Ulcer Psychiatric Medical History: Reports: Hx Bipolar Disorder - Pt suspects, no formal diagnosis , Hx Depression, Hx Post Traumatic Stress Disorder - Pt suspects, no formal diagnosis Denies: Hx Schizophrenia Infectious Medical History: Denies: Hx HIV Past Surgical History: Reports: Hx Section - x4 - Immunizations Immunizations up to date: Yes Hx Diphtheria, Pertussis, Tetanus Vaccination: Yes Vertical Provider Document - CONSTITUTIONAL Agree With Documented VS: Yes Exam Limitations: No Limitations General Appearance: No Apparent Distress - INFECTION CONTROL TRAVEL OUTSIDE OF THE [place] IN LAST 30 DAYS: No - HEENT HEENT: Atraumatic, Normocephalic, PERRLA - NECK Neck: Normal Inspection - RESPIRATORY Respiratory: No Respiratory Distress - CARDIOVASCULAR Cardiovascular: Regular Rate, Regular Rhythm Pulses: Normal: Posterior tibial, Dorsalis pedis - MUSCULOSKELETAL/EXTREMETIES Musculoskeletal/Extremeties: FROM, Tender - Left medial lower leg and left ankle, Edema - Left lateral ankle - NEURO Level of Consciousness: Awake, Alert, Appropriate Motor/Sensory: No Motor Deficit, No Sensory Deficit - DERM Integumentary: Warm, Dry, No Rash Course - Re-evaluation Re-evalutation: 05/21/20 X-ray was unremarkable, other than soft tissue swelling. Capillary refill less than 3 seconds. Dorsalis pedis and posterior tibial pulses 2+. No vascular compromise noted. Patient was placed in a splint. She will follow-up with her primary care provider. Follow-up precautions were given. Verbal discharge instructions were given to the patient. They verbalized understanding. They are stable for discharge. - Vital Signs Vital signs: Temp Pulse Resp BP Pulse Ox 98.7 F 98 16 134/74 H 99 05/21/20 20:56 05/21/20 20:56 05/21/20 20:56 05/21/20 20:56 05/21/20 20:56 - Laboratory Results Critical Laboratory Results Reviewed: No Critical Results - Radiology Results Critical Radiology Results Reviewed: No Critical Results Procedures - Immobilization Right Pre-Proc Neuro Vasc Exam: Normal Immobilizer type: Jerry wrap, Ankle stirrup, Crutches Performed by: RN Post-Proc Neuro Vasc Exam: Normal, Unchanged from pre-exam Alignment checked and good: Yes Discharge - Discharge Clinical Impression: Left ankle sprain Condition: Stable Disposition: HOME, SELF-CARE Instructions: Ice Packs ([facility]), Sprained Ankle ([facility]) Additional Instructions: Your x-ray shows soft tissue swelling. There was no evidence of a fracture. Rest, apply ice, and elevate your leg. Follow-up with your primary care provider regards to this visit. Take ibuprofen 600 mg and acetaminophen 1000 mg every 6 hours for your pain. Ankle Stirrup Splint You are to use an ankle brace called a stirrup splint. This type of brace allows you to place greater stresses on the ankle without risk of re-injury, and is often used for more severe ankle injuries such as avulsion fractures and ligament ruptures. The splint can be worn over a sock or tape. For proper support, wear the splint with a shoe over it. It's important that the splint fit properly. Adjust the heel tension, if needed. If your splint has air bladders, peel back the bottom of each air bladder, then move the Velcro attachment of the heel strap up or down. Air bladder pressure can be adjusted by pulling up the valve at the top, threading the air tube down into the main bladder, then blowing air into the bladder or squeezing it out. The two sides of the stirrup can be moved forward or back on your ankle by changing the attachment of the main straps. If you are unable to use the ankle comfortably in the splint, return for re-evaluation. Forms: Return to Work
== END 2020-05-22 00:15 | disposition home or self-care (01) ==
LOC: ER 19:49
DX: S93.402A Sprain of unspecified ligament of left ankle, initial encounter (principal); X50.0XXA Overexertion from strenuous movement or load, initial encounter
CPT/HCPCS: 99283